=== PATIENT | female | born 1975 | race Caucasian/White ===

== ENCOUNTER 2017-04-16 22:46 | Emergency (ER) | payer OTHER ==
[2017-04-16 22:52] VITALS: BP 124/111; PULSE 100; RESP 20; TEMP 98.8; O2SAT 97
[2017-04-16] MEDS ORDERED: SKIN ADHESIVE (DERMABOND) 1 EACH TP ONE (22:56)
--- NOTE | 2017-04-16 23:02 | EDPHY ---
H & P Stated Complaint: LAC above right eyebrow Time Seen by Provider: 04/16/17 22:53 HPI/ROS: Chief Complaint: Facial laceration HPI: 42-year-old woman accidentally struck the trunk lid of her car when she was taking groceries out. She sustained a laceration above her right eyebrow. She had no loss of consciousness. Last tetanus was in October. No nausea or vomiting. No headache. No lightheadedness. ROS: 10 point Review of Systems is negative except as noted in the HPI. PMH: Depression Social History: Positive smoking Family History: non-contributory Physical Exam: Gen: Awake, Alert, No Distress HEENT: She has a 1.3 cm horizontal laceration above her right eyebrow. It is not gaping. There is no tension. There is no foreign debris. There is good wound edge approximation Nose: no rhinorrhea Eyes: PERRLA, EOMI Mouth: Moist mucosa Neck: Nontender, full range of motion without pain Skin: no rash Neuro: CN II-XII intact, Sensation grossly intact, Strength 5/5 in bilateral upper and lower extremities - Personal History LMP (Females 10-55): 22-28 Days Ago Current Tetanus Diphtheria and Acellular Pertussis (TDAP): Yes - Medical/Surgical History Hx Asthma: No Hx Chronic Respiratory Disease: No Hx Diabetes: No Hx Cardiac Disease: No Hx Renal Disease: No Hx Cirrhosis: No Hx Alcoholism: No Hx HIV/AIDS: No Hx Splenectomy or Spleen Trauma: No Other PMH: X 2; depression - Social History Smoking Status: Current some day smoker Constitutional: Initial Vital Signs Temperature (C) 37.1 C 04/16/17 22:50 Heart Rate 100 04/16/17 22:50 Respiratory Rate 20 04/16/17 22:50 Blood Pressure 124/111 H 04/16/17 22:50 O2 Sat (%) 97 04/16/17 22:50 O2 Delivery Mode Room Air Allergies/Adverse Reactions: Penicillins Allergy (Verified 04/16/17 22:48) Home Medications: Medication Instructions Recorded Venlafaxine Xr [Effexor Xr 75MG 150 mg PO DAILY #30 cap 04/18/15 (*)] LaMICtal 04/16/17 Wellbutrin Sr 04/16/17 Medical Decision Making Procedures: Procedure: Laceration repair with skin glue. The 1.3 cm laceration above the right eyebrow. The wound was cleaned and explored to its base with a gloved finger. There were no deep structures involved. The wound was repaired with tissue adhesive. The procedure was performed by myself. Departure - Departure Disposition: Home, Routine, Self-Care Clinical Impression: Laceration Condition: Good Instructions: Facial Laceration (ED), Skin Adhesive Care (ED) Additional Instructions: Return to the emergency department for increasing redness, discharge from the wounds, worsening headache, nausea, vomiting, numbness, tingling, or any other concerns. Referrals: NONE *PRIMARY CARE P,. [Primary Care Provider] - As per Instructions
== END 2017-04-16 23:10 | disposition home or self-care (01) ==
PROC: 08QNXZZ Repair Right Upper Eyelid, External Approach (ICD-10-PCS; principal; 2017-04-16)
DX: S01.111A Laceration without foreign body of right eyelid and periocular area, initial encounter (principal); F17.200 Nicotine dependence, unspecified, uncomplicated; W22.8XXA Striking against or struck by other objects, initial encounter

== ENCOUNTER 2018-04-18 21:44 | Emergency (ER) | payer OTHER ==
[2018-04-18 21:52] VITALS: BP 151/101
--- NOTE | 2018-04-18 22:02 | EDPHY ---
H & P Time Seen by Provider: 04/18/18 21:54 HPI/ROS: This patient complains of dysuria, frequency urgency similar to prior UTIs over the past 2 days. She tried cranberry juice and increased water intake without significant improvement and came in for evaluation. She notes no other exacerbating factors has no other associated symptoms. ROS: Constitutional: No fevers GI: No nausea vomiting : No vaginal discharge. Last menstrual. Normal timing. No flank pain. 5 point review of symptoms is performed and otherwise negative with exception of pertinent positives and negatives listed in HPI and ROS Smoking Status: Current some day smoker Physical Exam: Physical Exam Vital signs are normal. General: No acute distress Lungs: No respiratory distress. Cardiac: Brisk capillary refill is intact throughout. Abdomen: Soft, mild suprapubic tenderness with no guarding or rebound Back: No CVA tenderness Skin: No rash or pallor. Neuro: Alert and oriented x3 Initial differential diagnosis: Cystitis, interstitial cystitis, urethritis Constitutional: Initial Vital Signs Temperature (C) 36.5 C 04/18/18 21:50 Heart Rate 92 04/18/18 21:50 Respiratory Rate 16 04/18/18 21:50 Blood Pressure 151/101 H 04/18/18 21:50 O2 Sat (%) 99 04/18/18 21:50 O2 Delivery Mode Room Air Allergies/Adverse Reactions: Penicillins Allergy (Verified 04/16/17 22:48) phenazopyridine [From Pyridium] Allergy (Verified 04/18/18 21:54) Home Medications: Medication Instructions Recorded Venlafaxine Xr [Effexor Xr 75MG 150 mg PO DAILY #30 cap 04/18/15 (*)] LaMICtal 04/16/17 Wellbutrin Sr 04/16/17 MDM/Departure - MDM ED Course/Re-evaluation: POC urine dip review-positive leukocytes. Discussion: Findings are consistent with cystitis. I counseled patient regarding this. She is treated with Macrobid 1st dose here will continue that treatment plan. She understands need to return should she develop worsening symptoms despite treatment plan. - Depart Disposition: Home, Routine, Self-Care Clinical Impression: Cystitis Condition: Good Instructions: Urinary Tract Infection in Women (ED) Additional Instructions: Diagnosis: Bladder infection Plan: Drink plenty fluids Macrobid antibiotic Tylenol or ibuprofen for discomfort if needed. Return for any significant worsening despite the treatment plan
[2018-04-18] MEDS ORDERED: NITROFURANTOIN 100MG PREPACK#2 BTL TAKEHOME ONE (22:18)
== END 2018-04-18 22:26 | disposition home or self-care (01) ==
LOC: CED 21:44
DX: N30.90 Cystitis, unspecified without hematuria (principal); F17.200 Nicotine dependence, unspecified, uncomplicated

== ENCOUNTER → 2018-04-26 | Outpatient (CLI) | payer OTHER | LOC: BMCIMAGING 11:50 | PROVIDERS: ATTEND Registered Nurse | DX: N63.11 Unspecified lump in the right breast, upper outer quadrant (principal) ==

== ENCOUNTER → 2018-10-05 | Outpatient (CLI) | payer OTHER | LOC: BMCIMAGING 10:24 | PROVIDERS: ATTEND Registered Nurse | DX: N63.11 Unspecified lump in the right breast, upper outer quadrant (principal) ==

== ENCOUNTER 2018-11-02 07:40 | Day surgery (SDC) | payer OTHER ==
[2018-11-02] MEDS ORDERED: ceFAZolin 2 GM/DEXTROSE 100 ML IV ONE (08:00)
--- NOTE | 2018-11-02 08:48 | PDHPUP ---
History & Physical Update H&P update statement: This history and physical update is based on an assessment of the patient which was completed after admission or registration (within 24 hours), but prior to the surgery/procedure. H&P update: H&P reviewed & patient examined, no change in patient's condition since H&P completed
[2018-11-02] MEDS ORDERED: MIDAZOLAM 2 MG/2 ML VIAL IVP ONE (08:56)
--- NOTE | 2018-11-02 08:56 | PDANEPAE ---
ANE History of Present Illness Breast lump ANE Past Medical History - Cardiovascular History Hx Hypertension: No Hx Arrhythmias: No Hx Chest Pain: No Hx Coronary Artery / Peripheral Vascular Disease: No Hx CHF / Valvular Disease: No Hx Palpitations: No - Pulmonary History Hx COPD: No Hx Asthma/Reactive Airway Disease: No Hx Recent Upper Respiratory Infection: No Hx Oxygen in Use at Home: No Hx Sleep Apnea: No Sleep Apnea Screening Result - Last Documented: Negative - Neurologic History Hx Cerebrovascular Accident: No Hx Seizures: No Hx Dementia: No - Endocrine History Hx Diabetes: No - Renal History Hx Renal Disorders: No - Liver History Hx Hepatic Disorders: No - Neurological & Psychiatric Hx Hx Neurological and Psychiatric Disorders: No - Cancer History Hx Cancer: No - Congenital Disorder History Hx Congenital Disorders: No - GI History Hx Gastrointestinal Disorders: Yes Gastrointestinal History Comment: HEARTBURN - Other Health History Other Health History: NEG - Chronic Pain History Chronic Pain: No - Surgical History Prior Surgeries: C SECTION X2. ADENOIDECTOMY ANE Review of Systems Review of Systems: - Exercise capacity METS (RN): 5 METS ANE Patient History - Allergies Allergies/Adverse Reactions: Penicillins Allergy (Verified 04/16/17 22:48) phenazopyridine [From Pyridium] Allergy (Verified 04/18/18 21:54) - Home Medications Home Medications: Herbals/Supplements -Info Only 10/31/18 [Last Taken Unknown] - NPO status NPO Since - Liquids (Date): 11/01/18 NPO Since - Liquids (Time): 05:00 NPO Since - Solids (Date): 11/01/18 NPO Since - Solids (Time): 21:00 - Anes Hx Anes Hx: no prior problems - Smoking Hx Smoking Status: Heavy smoker - Family Anes Hx Family Hx Anesthesia Complications: NEG ANE Labs/Vital Signs - Vital Signs Blood Pressure: 101/71 Heart Rate: 73 Respiratory Rate: 20 O2 Sat (%): 99 Height: 170.18 cm Weight: 58.967 kg ANE Physical Exam - Airway Neck exam: FROM Mallampati Score: Class 2 - Pulmonary Pulmonary: no respiratory distress - Cardiovascular Cardiovascular: regular rate and rhythym - ASA Status ASA Status: II ANE Anesthesia Plan Anesthesia Plan: GA w LMA
[2018-11-02] MEDS ORDERED: THROMBIN (BOVINE) 5,000 UNIT VIAL TP ONE (09:08)
[2018-11-02] MEDS ORDERED: BUPIVACAINE 0.5% 30 ML SDV ONE (09:08)
[2018-11-02] MEDS ORDERED: PROPOFOL 200 MG/20 ML VIAL ONE ×2 (09:17→09:29)
[2018-11-02] MEDS ORDERED: fentaNYL 100 MCG/2 ML INJ ONE (09:17)
[2018-11-02] MEDS ORDERED: DEXAMETHASONE 4 MG/ML VIAL ONE (09:42)
[2018-11-02] MEDS ORDERED: ONDANSETRON 4 MG/2 ML VIAL ONE (09:42)
[2018-11-02] MEDS ORDERED: fentaNYL 100 MCG/2 ML INJ IVP PRN (10:02)
[2018-11-02] MEDS ORDERED: NALOXONE HCL 0.4 MG/ML INJ IVP PRN (10:02)
[2018-11-02] MEDS ORDERED: ONDANSETRON 4 MG/2 ML VIAL IVP PRN (10:02)
--- NOTE | 2018-11-02 10:09 | POSTANESTH ---
Post Anesthetic Evaluation Cardiovascular Status: Similar to Pre-Op Cond Respiratory Status: Similar to Pre-op Cond. Level of Consciousness/Mental Status: Alert and Oriented Pain Control: Adequate, Prn Tx Ordered Nausea/Vomiting Control: Adequate, Prn Tx Ordered Complications Possibly Related to Anesthesia: None Noted
[2018-11-02 11:22] VITALS: BP 103/73
--- NOTE | 2018-11-02 11:55 | POSTOPPROG ---
Post Op Note Date of Operation: 11/02/18 Surgeon: Jeramy Ramirez Aluminizer: Joslyn Anesthesiologist: Reza Anesthesia: GET(General Endotracheal) Pre-op Diagnosis: R breast mass Post-op Diagnosis: same Indication: same Procedure: R breast mass excision Findings: Firm, mobile mass in R upper outer quadrant Inf/Abcess present in the surg proc area at time of surgery?: No Depth: Superfical (Skin SQ) EBL: Minimal Specimen(s): R breast mass- fresh
--- NOTE | 2018-11-05 21:10 | GOP ---
[f rep st] OPERATIVE REPORT DATE OF OPERATION: SURGEON: Jeramy Ramirez MD VETERINARY TECHNICIAN INSTRUCTOR: Nathalie Jorgensen NP PREOPERATIVE DIAGNOSIS: Right breast mass. POSTOPERATIVE DIAGNOSIS: Fibroadenoma. PROCEDURE PERFORMED: Excisional right breast biopsy. FINDINGS: Patient was found to have a 3 cm multilobulated fibroadenoma in the upper inner quadrant o f the right breast. DESCRIPTION OF PROCEDURE: Patient was taken to the operating room where she received satisfactory ge neral laryngeal mask anesthesia. She was placed in supine position with the right arm outstretched o n an arm board, prepped and draped in the usual sterile fashion. The palpable mass was identified. A curvilinear incision was made around the areola, and dissection extended up under the upper skin fl ap over to the mass which was grasped with a towel clip. It was sharply excised from surrounding rosendo ast tissue. Hemostasis was assured. The mass was sent to Pathology. Hemostasis was obtained. [place] st tissue approximated with 3-0 Vicryl sutures as was the subcu and the skin with a 4-0 Monocryl subc uticular stitch. The wound was infiltrated with 0.5% Marcaine. Blood loss negligible. No complicat ions. Taken to the recovery room in good condition. /[id number]/MODL
== END 2018-11-02 11:23 | disposition home or self-care (01) ==
LOC: FSGY 07:40
PROVIDERS: ATTEND Surgery
PROC: 0HBT0ZX Excision of Right Breast, Open Approach, Diagnostic (ICD-10-PCS; principal; 2018-11-02 08:45)
DX: D24.2 Benign neoplasm of left breast (principal); F10.11 Alcohol abuse, in remission; F32.9 Major depressive disorder, single episode, unspecified; F41.9 Anxiety disorder, unspecified; Z72.0 Tobacco use
CPT/HCPCS: J0690; J1100; J2250; J2405; J2704; J3010